=== PATIENT | male | born 1980 | race Caucasian/White ===

== ENCOUNTER 2020-03-16 19:38 | Emergency (ER) | payer MEDICAID ==
[~2020-03-16] VITALS: Ht 190.5 cm; Wt 102.3 kg
[2020-03-16 19:46] VITALS: BP 125/65
== END 2020-03-16 21:51 | disposition left against medical advice (07) ==
LOC: ER 19:39
DX: L02.31 Cutaneous abscess of buttock (principal); Z53.21 Procedure and treatment not carried out due to patient leaving prior to being seen by health care provider

== ENCOUNTER 2020-06-10 08:07 | Inpatient (IN) | payer MEDICAID ==
[~2020-06-10] VITALS: Ht 190.5 cm; Wt 110.0 kg
[2020-06-10] MEDS ORDERED: acetaminophen 325mg tablet PO STA (09:34)
[2020-06-10] MEDS ORDERED: CefTRIAXone 2gm/D5W 50ml BAG 50 ML IV ONE (09:35)
[2020-06-10] MEDS ORDERED: LIDOcaine 1% W/epiNEPHrine 1:200,000 10ml vial IJ ONE (09:35)
[2020-06-10] MEDS ORDERED: normal saline 1000ML IV soln IV ONE (09:35)
[2020-06-10] MEDS ORDERED: vancomycin/NS 1 GM ADD-VANTAGE 250 ML IV ONE (09:35)
--- NOTE | 2020-06-10 10:10 | NUR ---
INFORMED PROVIDER OF FAILED IV ATTEMPTS AND PT WITHOUT IV AND LABS STILL BEING ATTEMPTED TO BE DRAWN. DIRECTOR OPERATING TO ATTEMPT
[2020-06-10 11:03] LABS: ALANINE AMINOTRANSFERASE 26 U/L (12-78); ALBUMIN 2.6 G/DL (3.4-5.0); ALBUMIN/GLOBULIN RATIO 0.5 (1.1-1.5); ALKALINE PHOSPHATASE 101 IU/L (46-116); ANION GAP 10 (8-16); ASPARTATE AMINO TRANSFERASE 21 U/L (10-37); BILIRUBIN,TOTAL 0.5 MG/DL (0.1-1.0); BLOOD UREA NITROGEN 21 MG/DL (7-18); BUN/CREATININE RATIO 31.3 (5.4-32.0); CALCIUM 8.7 MG/DL (8.5-10.1); CHLORIDE 106 MMOL/L (99-107); CREATININE 0.67 MG/DL (0.60-1.10); GLUCOSE 108 MG/DL (70-104); POTASSIUM 3.5 MMOL/L (3.5-5.1); SODIUM 143 MMOL/L (135-145); TOTAL CARBON DIOXIDE 27.5 MMOL/L (24-32); TOTAL PROTEIN 7.9 G/DL (6.4-8.2); eGFR > 90 ML/MIN
--- NOTE | 2020-06-10 11:40 | NUR ---
ASSUMING CARE OF PT. UNABLE TO GET IV ACCESS, ATTEMPT X 2. DR EASON NOTIFIED, WILL PROCEED WITH CENTRAL LINE INSERTION.
[2020-06-10] MEDS: LIDOcaine 1% 30ml preserv. free vial IJ ONE ×2 (11:45→12:43)
[2020-06-10 11:53] LABS: C-REACTIVE PROTEIN 14.87 MG/DL (0.0-0.5)
[2020-06-10 11:54] LABS: BASOPHILS # (AUTO) 0.2 X10'3 (0-0.2); BASOPHILS % (AUTO) 1.5 % (0-1); EOSINOPHILS # (AUTO) 0.6 X10'3 (0-0.9); HEMATOCRIT 28.8 % (42.0-52.0); HEMOGLOBIN 8.8 g/dl (14.0-17.9); LYMPHOCYTES # (AUTO) 1.3 X10'3 (1.1-4.8); LYMPHOCYTES % (AUTO) 8.8 % (21-51); MEAN CORPUSCULAR HEMOGLOBIN 20.1 PG (27.0-31.0); MEAN CORPUSCULAR HGB CONC 30.4 g/dL (33.0-36.5); MEAN CORPUSCULAR VOLUME 66.2 FL (78-98); MEAN PLATELET VOLUME 7.5 FL (7.4-10.4); MONOCYTES # (AUTO) 1.5 X10'3 (0-0.9); MONOCYTES % (AUTO) 10.3 % (2-12); NEUTROPHILS # (AUTO) 11.4 X10'3 (1.8-7.7); NEUTROPHILS % (AUTO) 75.4 % (42-75); PLATELET COUNT 485 X10'3 (140-440); RED BLOOD COUNT 4.35 X10'6 (4.70-6.10); RED CELL DISTRIBUTION WIDTH 18.2 % (11.5-14.5); WHITE BLOOD COUNT 15.1 X10'3 (4.5-11.0)
[2020-06-10] MEDS ORDERED: morphine 4 MG/ML inj SYRINge IV ONE ×2 (12:15→15:05)
[2020-06-10] MEDS ORDERED: ondansetron/PF 4mg/2ml inj IV ONE (12:15)
--- NOTE | 2020-06-10 12:31 | NUR ---
VERBAL FROM DR EMRE SANTIZO TO USE CENTRAL LINE
[2020-06-10] MEDS ORDERED: iohexol 300mg/ml 100ml inj. ONE (12:37)
[2020-06-10 13:18] LABS: PLATELET ESTIMATE INCREASED
[2020-06-10 13:19] LABS: ANISOCYTOSIS 2+; HYPOCHROMASIA 1+; MICROCYTOSIS 2+
[2020-06-10 13:20] LABS: ELLIPTOCYTES FEW
--- NOTE | 2020-06-10 14:07 | NUR ---
BACK TO ER FROM CT, NO DISTRESS
[2020-06-10] MEDS ORDERED: LEVE750T6 PO (14:09)
[2020-06-10] MEDS ORDERED: LIDOcaine 1% W/epiNEPHrine 1:200,000 10ml vial IJ STA (14:32)
--- NOTE | 2020-06-10 15:48 | NUR ---
PA HAS DRAINED LARGE AMT OF PUS FROM LEFT THIGH, PT REPORTS FEELING MUCH BETTER NOW
[2020-06-10] MEDS ORDERED: morphine 2 MG/ML inj. syringe IV PRN ×3 (16:30→19:20)
[2020-06-10] MEDS ORDERED: ondansetron/PF 4mg/2ml inj IV PRN (16:30)
[2020-06-10] MEDS ORDERED: albuterol 2.5 MG/3 ML nebule NEB PRN (16:30)
[2020-06-10] MEDS ORDERED: ipratropium/albuterol 3ml nebule NEB PRN (16:30)
[2020-06-10] MEDS ORDERED: mag hydrox/Alum hydrox/simeth 30ml oral suspension PO PRN (16:30)
[2020-06-10] MEDS ORDERED: acetaminophen 325mg tablet PO PRN (16:30)
[2020-06-10] MEDS ORDERED: magnesium 4gm in 100ml NS 100 ML IV PRN (16:30)
[2020-06-10] MEDS ORDERED: magnesium 2GM in 50ml NS 50 ML IV PRN (16:30)
[2020-06-10] MEDS ORDERED: magnesium hydroxide 30ml (MOM) UD suspension PO PRN (16:30)
[2020-06-10] MEDS ORDERED: potassium Cl 40MEQ/1/2NS 520ml 520 ML IV PRN ×2 (16:30)
[2020-06-10] MEDS ORDERED: potassium Cl 20 mEq SR tablet PO PRN (16:30)
[2020-06-10] MEDS: normal saline 1000ml 1,000 ML IV SCH (18:17)
[2020-06-10 19:00] VITALS: BP 126/78
[2020-06-10 19:09] LABS: % IRON SATURATION 6 % (11-46); IRON 10 UG/DL (53-167); TOTAL IRON BINDING CAPACITY 176 UG/DL (259-388)
[2020-06-10] MEDS ORDERED: HYDROcodone/acetaminophen 10/325mg tab PO PRN (19:20)
[2020-06-10] MEDS: vancomycin/NS 1 GM ADD-VANTAGE 250 ML IV SCH (19:55)
[2020-06-10] MEDS: K and/or MAG REPLACEMENT MC SCH (19:56)
[2020-06-10] MEDS: levetiracetam 250mg tablet PO SCH (19:56)
[2020-06-10] MEDS ORDERED: enoxaparin 40mg/0.4ml syringe SQ SCH (20:00)
[2020-06-10] MEDS: morphine 2 MG/ML inj. syringe IV PRN (21:41)
[2020-06-10] MEDS: piperacillin/tazo 4.5gm/100ml 100 ML IV SCH (23:39)
[2020-06-11] VITALS: BP 158/83
[2020-06-11] MEDS: morphine 2 MG/ML inj. syringe IV PRN ×5 (00:26→10:16)
[2020-06-11] MEDS: normal saline 1000ml 1,000 ML IV SCH ×2 (02:30→03:39)
[2020-06-11] MEDS: vancomycin/NS 1 GM ADD-VANTAGE 250 ML IV SCH ×2 (03:39→12:06)
[2020-06-11 05:54] LABS: BASOPHILS # (AUTO) 0.1 X10'3 (0-0.2); BASOPHILS % (AUTO) 0.6 % (0-1); EOSINOPHILS # (AUTO) 0.4 X10'3 (0-0.9); EOSINOPHILS % (AUTO) 3.6 % (0-6); HEMATOCRIT 23.8 % (42.0-52.0); HEMOGLOBIN 7.4 g/dl (14.0-17.9); LYMPHOCYTES # (AUTO) 1.4 X10'3 (1.1-4.8); LYMPHOCYTES % (AUTO) 12.5 % (21-51); MEAN CORPUSCULAR HEMOGLOBIN 20.3 PG (27.0-31.0); MEAN CORPUSCULAR HGB CONC 30.9 g/dL (33.0-36.5); MEAN CORPUSCULAR VOLUME 65.5 FL (78-98); MEAN PLATELET VOLUME 7.1 FL (7.4-10.4); MONOCYTES % (AUTO) 8.6 % (2-12); NEUTROPHILS # (AUTO) 8.4 X10'3 (1.8-7.7); NEUTROPHILS % (AUTO) 74.7 % (42-75); PLATELET COUNT 448 X10'3 (140-440); RED BLOOD COUNT 3.64 X10'6 (4.70-6.10); WHITE BLOOD COUNT 11.3 X10'3 (4.5-11.0)
[2020-06-11 06:20] LABS: ALANINE AMINOTRANSFERASE 28 U/L (12-78); ALBUMIN/GLOBULIN RATIO 0.4 (1.1-1.5); ALKALINE PHOSPHATASE 94 IU/L (46-116); ANION GAP 8 (8-16); ASPARTATE AMINO TRANSFERASE 20 U/L (10-37); BILIRUBIN,TOTAL 0.4 MG/DL (0.1-1.0); BLOOD UREA NITROGEN 9 MG/DL (7-18); CALCIUM 8.2 MG/DL (8.5-10.1); CHLORIDE 107 MMOL/L (99-107); GLUCOSE 93 MG/DL (70-104); MAGNESIUM 1.6 MG/DL (1.5-2.4); POTASSIUM 3.3 MMOL/L (3.5-5.1); SODIUM 142 MMOL/L (135-145); TOTAL CARBON DIOXIDE 26.8 MMOL/L (24-32); TOTAL PROTEIN 6.6 G/DL (6.4-8.2); eGFR > 90 ML/MIN
--- NOTE | 2020-06-11 06:25 | NUR ---
Problems reprioritized. Patient report given, questions answered & plan of care reviewed with NGUYEN. Addendum: 06/11/20 at 0625 by Selwyn Simons RN Amended: Links added.
[2020-06-11 06:51] LABS: PLATELET ESTIMATE INCREASED
[2020-06-11 06:52] LABS: ANISOCYTOSIS 1+; MICROCYTOSIS 2+
[2020-06-11 06:53] LABS: ELLIPTOCYTES 1+; HYPOCHROMASIA 1+; LARGE PLATELETS FEW
[2020-06-11 07:39] VITALS: BP 108/80
[2020-06-11] MEDS: piperacillin/tazo 4.5gm/100ml 100 ML IV SCH (07:51)
[2020-06-11] MEDS: potassium Cl 20 mEq SR tablet PO PRN ×2 (07:52→12:06)
[2020-06-11] MEDS: levetiracetam 250mg tablet PO SCH (07:52)
[2020-06-11] MEDS: K and/or MAG REPLACEMENT MC SCH (08:00)
[2020-06-11] MEDS ORDERED: iron sucrose complex injection 200 MG in normal saline 100ml IV soln 100 ML IV SCH (10:00)
[2020-06-11] MEDS ORDERED: morphine 4 MG/ML inj SYRINge IV PRN (11:05)
[2020-06-11 11:28] VITALS: BP 137/72
--- NOTE | 2020-06-11 15:34 | NUR ---
PT LEFT AMA. PT WAS INFORMED ABOUT UPDATED MEDICATIONS TO HELP WITH PAIN DURING STAY, PT STILL INSISTED TO GO. PT WAS THEN EDUCATED ABOUT SEVERITY AND NEED FOR ANTIBIOTICS FOR HIS INFECTIONS. PT MADE A PHONE CALL TO A FRIEND AND REPORTED THAT HE STILL WANTED TO LEAVE AND THAT THE MEDICATIONS WILL NOT HELP HIS NEED FOR THE RECREATIONAL DRUGS. CENTRAL RIGHT IJ WAS REMOVED PRIOR TO DISCHARGE ASEPTICALLY. RIGHT THIGH WOUNDS RECOVERED WITH OPTIFOAM DUE TO PT REMOVAL, MINIMAL DRAINAGE. PT WAS PROVIDED ADDITIONAL WOUND CARE SUPPLIES IN PT BELONGINGS BAG ON D/C. PT DRESSED SELF INDPENDENTLY AND AMBULATED OUT OF FACILITY AT 1535 TODAY.
--- NOTE | 2020-06-11 15:42 | NUR ---
PAGER ID: [phone] MESSAGE: Chase Surg [id number] re [id number] Manish Parson Patient decided to leave AMA no matter how much he need antibiotics. Patient said he needed heroin. thanks
--- NOTE | 2020-06-11 17:17 | NUR ---
Student documentation: I have reviewed and agree with all interventions, assessments performed and documented by Tab ROMAN.
[2020-06-11] MEDS ORDERED: VANCOMYCIN LEVEL IV ONE (19:30)
[2020-06-11] MEDS ORDERED: lactobacillus rhamnosus 10,000 MMU CELLS/CAPSULE PO SCH (20:00)
== END 2020-06-11 15:29 | disposition left against medical advice (07) | DRG 383 ==
LOC: ER 08:07 → ED HOLD 16:28 → SUR 3N 19:00
PROVIDERS: ADMIT Family Medicine; ATTEND Family Medicine
PROC: 02HV33Z Insertion of Infusion Device into Superior Vena Cava, Percutaneous Approach (ICD-10-PCS; principal; 2020-06-10)
PROC: B548ZZA Ultrasonography of Superior Vena Cava, Guidance (ICD-10-PCS; 2020-06-10)
PROC: 0Y9D0ZZ Drainage of Left Upper Leg, Open Approach (ICD-10-PCS; 2020-06-10)
PROC: BQ2S1ZZ Computerized Tomography (CT Scan) of Left Lower Extremity using Low Osmolar Contrast (ICD-10-PCS; 2020-06-10)
DX: L02.416 Cutaneous abscess of left lower limb (principal); L03.116 Cellulitis of left lower limb; Z53.29 Procedure and treatment not carried out because of patient's decision for other reasons; F11.10 Opioid abuse, uncomplicated; D50.9 Iron deficiency anemia, unspecified; G40.909 Epilepsy, unspecified, not intractable, without status epilepticus; F17.210 Nicotine dependence, cigarettes, uncomplicated; Z79.899 Other long term (current) drug therapy; Z71.6 Tobacco abuse counseling; Z91.19 Patient's noncompliance with other medical treatment and regimen
CPT/HCPCS: 36415; 36556; 71045; 73701; 80053; 83540; 83550; 83605; 83735; 84145; 85008; 85025; 86140; 87040; 87081; 94760; 96365; 99285; G0378; J0696; J1650; J1756; J2270; J2405; J2543; J3370; J7030; Q9967

== ENCOUNTER 2020-10-01 20:37 | Emergency (ER) | payer MEDICAID ==
[~2020-10-01] VITALS: Ht 190.5 cm; Wt 100.0 kg
[~2020-10-01 20:37] MED LIST: LEVE750T6 PO; LIDOcaine 1% W/epiNEPHrine 1:100,000 20ml vial ONE
[2020-10-01 20:40] VITALS: BP 136/83
[2020-10-01 21:44] LABS: BASOPHILS % (AUTO) 0.5 % (0-1); EOSINOPHILS # (AUTO) 0.4 X10'3 (0-0.9); EOSINOPHILS % (AUTO) 4.6 % (0-6); HEMATOCRIT 30.8 % (42.0-52.0); HEMOGLOBIN 9.5 g/dl (14.0-17.9); LYMPHOCYTES # (AUTO) 1.5 X10'3 (1.1-4.8); LYMPHOCYTES % (AUTO) 16.6 % (21-51); MEAN CORPUSCULAR HEMOGLOBIN 21.2 PG (27.0-31.0); MEAN CORPUSCULAR HGB CONC 30.8 g/dL (33.0-36.5); MEAN CORPUSCULAR VOLUME 68.7 FL (78-98); MEAN PLATELET VOLUME 7.7 FL (7.4-10.4); MONOCYTES # (AUTO) 0.9 X10'3 (0-0.9); MONOCYTES % (AUTO) 10.2 % (2-12); NEUTROPHILS # (AUTO) 6.2 X10'3 (1.8-7.7); NEUTROPHILS % (AUTO) 68.1 % (42-75); PLATELET COUNT 331 X10'3 (140-440); RED BLOOD COUNT 4.49 X10'6 (4.70-6.10); WHITE BLOOD COUNT 9.2 X10'3 (4.5-11.0)
[2020-10-01 22:10] LABS: ALANINE AMINOTRANSFERASE 28 U/L (12-78); ALBUMIN 2.9 G/DL (3.4-5.0); ALBUMIN/GLOBULIN RATIO 0.5 (1.1-1.5); ALKALINE PHOSPHATASE 105 IU/L (46-116); ANION GAP 9 (8-16); ASPARTATE AMINO TRANSFERASE 29 U/L (10-37); BILIRUBIN,TOTAL 0.2 MG/DL (0.1-1.0); BLOOD UREA NITROGEN 15 MG/DL (7-18); BUN/CREATININE RATIO 18.5 (5.4-32.0); CALCIUM 8.4 MG/DL (8.5-10.1); CHLORIDE 103 MMOL/L (99-107); CREATININE 0.81 MG/DL (0.60-1.10); GLUCOSE 92 MG/DL (70-104); POTASSIUM 4.1 MMOL/L (3.5-5.1); SODIUM 138 MMOL/L (135-145); TOTAL CARBON DIOXIDE 26.5 MMOL/L (24-32); TOTAL PROTEIN 8.5 G/DL (6.4-8.2); eGFR > 90 ML/MIN
[2020-10-01] MEDS ORDERED: ketorolac trometh. 30mg/ml inj. IM ONE (23:40)
[2020-10-01] MEDS ORDERED: acetaminophen 325mg tablet PO ONE (23:50)
[2020-10-01] MEDS ORDERED: ibuprofen 200mg tablet PO ONE (23:50)
[2020-10-02] MEDS ORDERED: sulfamethoxazole/trimethoprim DS (800/160mg) tablet PO ONE (00:35)
[2020-10-02] MEDS ORDERED: SULF1TAB49 PO (00:41)
== END 2020-10-02 01:12 | disposition home or self-care (01) ==
LOC: ER 20:38
DX: L02.415 Cutaneous abscess of right lower limb (principal); L02.31 Cutaneous abscess of buttock; R61 Generalized hyperhidrosis; R11.0 Nausea; F11.90 Opioid use, unspecified, uncomplicated; G43.909 Migraine, unspecified, not intractable, without status migrainosus; Z79.899 Other long term (current) drug therapy
CPT/HCPCS: 10061; 80053; 83605; 85025; 99284